=== PATIENT | male | born 1940 | race Caucasian/White ===

== ENCOUNTER 2017-05-16 11:15 | Inpatient (IN) | payer OTHER ==
[~2017-05-16] VITALS: Ht 160 cm; Wt 58.4 kg
[~2017-05-16 11:15] MED LIST: ADVAIR 100/501 DISK IH; ADVAIR HFA120 INHALA IH; ALDACTONE25 MG PO; AMBIEN10 MG PO; ASPIR-LOW81 MG PO; ASPIRIN325 MG PO; BACTRIM,SEPT1 TABLET PO; CILOSTAZOL50 MG PO; CLARITIN,ALAVAR10 MG PO; CLOPIDOGREL75 MG PO; FAMOTIDINE20 MG PO; FLAGYL500 MG PO; FUROSEMIDE40 MG PO; GLUCOSAMINE H1500 MG PO; GLUCOSAMINE1000 MG PO; HEPARIN SO5000 UNITS SC; HYDROCHLOROTHIA25 MG PO; K-DUR20 MEQ PO; LASIX40 MG PO; LISINOPRIL2.5 MG PO; LISINOPRIL5 MG PO; LOPRESSOR25 MG PO; MUCINEX1200 MG PO; MUCINEX600 MG PO; NITROSTAT0.4 MG SL; NYSTATIN100000 UN1 PO; OMEPRAZOLE40 M1 PO; PEPCID20 MG PO; PHILLIPS500 MG PO; PLAVIX75 MG PO; REQUIP0.25 MG PO; SONATA10 MG PO; SPIRIVA RESPIMAT4 GM IH; SPIRONOLACTONE25 MG PO; STIOLTO RESPIMAT4 GM IH; STOOL SOFTENER1 EAC1 PO; STOOL SOFTENER100 M1 PO; SYMBICORT60 INHALA1 IH; TYLENOL ARTHRI650 MG PO; URSODIOL300 MG PO; ZANTAC150 MG PO; ZETIA10 MG PO
[2017-05-23] VITALS (11 sets, daily range): BP systolic 0–139; BP diastolic 0–91
[2017-05-23 08:59] LABS: METH RESISTANT S AUREUS PCR POSITIVE (NEGATIVE)
[2017-05-23 09:05] LABS: PROBE CHECK PASS
[2017-05-24 02:00] VITALS: BP 117/52
[2017-05-24 06:00] VITALS: BP 116/54
[2017-05-24 08:00] VITALS: BP 128/41
[2017-05-24 10:00] VITALS: BP 123/44
[2017-05-24] MEDS ORDERED: HYDROCODON-ACE1 EAC7 PO (10:33)
== END 2017-05-24 13:40 | disposition home or self-care (01) | DRG 39 ==
LOC: 2SOUTH 11:15 → 4WEST 05-23 07:10 → 2SOUTH 05-23 07:10 → 4WEST 05-23 14:30
PROVIDERS: Surgery
PROC: 03CL0ZZ Extirpation of Matter from Left Internal Carotid Artery, Open Approach (ICD-10-PCS; principal; 2017-05-24)
DX: I65.23 Occlusion and stenosis of bilateral carotid arteries (principal); I70.209 Unspecified atherosclerosis of native arteries of extremities, unspecified extremity; M19.90 Unspecified osteoarthritis, unspecified site; I10 Essential (primary) hypertension; Z86.72 Personal history of thrombophlebitis; Z87.891 Personal history of nicotine dependence; Z96.652 Presence of left artificial knee joint; I25.2 Old myocardial infarction
CPT/HCPCS: 86900; 86901; 87641; 88300; C1768; J0690; J1170; J1644; J2250; J2405; J2720; J2795; J3010; J7120